=== PATIENT | female | born 1985 | race Two or more races ===

== ENCOUNTER 2024-10-20 07:39 | Outpatient (CLI) | payer OTHER, SELFPAY ==
--- NOTE | ~2024-10-20 | MR_ITS ---
EXAMINATION: MR lumbar spine wo con DATE: 10/20/2024 08:16 INDICATION: Lumbago with one month of low back and right leg pain TECHNIQUE: Magnetic resonance imaging (MRI) of the lumbar spine was performed without intravenous con trast. Sequences included sagittal T2-weighted FSE, sagittal T2-weighted FS FSE, sagittal T1-weighted FSE, and axial T2-weighted FSE. COMPARISON: None FINDINGS: 6 degrees lumbar levocurvature. Sagittal alignment is normal. Chronic appearing mild likely physiolog ic anterior wedging at T12. Lumbar vertebral body heights are normal. There are small Schmorl's nodes along a few of the endplates in the lower thoracic and upper lumbar spine. T1 hyperintense hemangiom a at L5. Marrow signal is otherwise unremarkable. Multilevel mild disc height loss from T11-T12 throu gh L4-L5. There are annular fissures at T11-T12 and L2-L3 through L4-5. The conus medullaris terminat es at L1-L2. There is normal signal in the caudal spinal cord. Paravertebral soft tissues are unremar kable. The following disc levels are specifically discussed: T11-T12: Annular fissure with small left paracentral disc protrusion. There is mild bilateral facet o steoarthritis. There is mild left neural foraminal stenosis. There is mild central canal stenosis. T12-L1: There is a small disc protrusion extending from the left paracentral to the right subarticula r zones. There is mild bilateral facet joint osteoarthritis. There is no neural foraminal stenosis. T here is mild central canal stenosis. L1-L2: Small disc protrusion extending from the left and right subarticular zones. There is mild bila teral facet joint osteoarthritis. There is mild left neural foraminal stenosis. There is mild central canal stenosis. L2-L3: Disc is mildly bulging with superimposed annular fissure and right paracentral disc extrusion with disc material extending 1.3 similar caudal to the level of the superior endplate of L3. There is mild bilateral facet joint osteoarthritis. There is mild bilateral neural foraminal stenosis. There is mild central canal stenosis. L3-L4: Disc is bulging. There is moderate bilateral facet joint osteoarthritis. There is altered left and moderate right neural foraminal stenosis. There is mild central canal stenosis. L4-L5: Disc is bulging. There is moderate left and moderate to severe right facet joint osteoarthriti s. There is moderate right and mild to moderate left neural foraminal stenosis. There is mild central canal stenosis. L5-S1: The disc does not extend beyond the endplate margin. There is mild bilateral, left greater daphnie n right, facet joint osteoarthritis. There is no neural foraminal stenosis. There is no central canal stenosis. IMPRESSION: 1. Mild lumbar spondylosis. Reviewed, dictated and finalized at location B. IMPRESSION: 1. Mild lumbar spondylosis.
== END 2024-10-20 07:40 | disposition home or self-care (01) ==
LOC: MICIMG 07:40
PROVIDERS: PCP Nurse Practitioner Family; Visit Provider Nurse Practitioner Family
DX: M43.06 Spondylolysis, lumbar region (principal)
CPT/HCPCS: 72148